=== PATIENT | female | born 1950 | race Caucasian/White ===

== ENCOUNTER 2023-08-16 04:52 | Emergency (ER) | payer MEDICARE, BC ==
[~2023-08-16] VITALS: Ht 170.2 cm; Wt 122.7 kg
[2023-08-16] MEDS ORDERED: METF-838 PO (06:32)
[2023-08-16] MEDS: ACETAMINOPHEN 325 MG TAB PO ONE (06:52)
[2023-08-16] MEDS ORDERED: METO100T5 PO (07:04)
[2023-08-16] MEDS ORDERED: SEMA14TA2 PO (07:05)
[2023-08-16] MEDS ORDERED: LEXA1TAB2 PO (07:08)
[2023-08-16] MEDS ORDERED: LANTINJ4 SC (07:08)
[2023-08-16] MEDS ORDERED: DILT1TAB3 PO (07:10)
[2023-08-16] MEDS ORDERED: ECOT81TA5 PO (07:11)
[2023-08-16] MEDS ORDERED: HYDR-4571 PO (07:49)
[2023-08-16 08:16] VITALS: BP 143/62; TEMP 97.3; O2SAT 94
== END 2023-08-16 08:18 | disposition home or self-care (01) ==
LOC: M ED 04:52
DX: S22.32XA Fracture of one rib, left side, initial encounter for closed fracture (principal); Y92.019 Unspecified place in single-family (private) house as the place of occurrence of the external cause; Y93.9 Activity, unspecified; Y99.9 Unspecified external cause status; I48.91 Unspecified atrial fibrillation; E11.9 Type 2 diabetes mellitus without complications; Z88.0 Allergy status to penicillin; Z88.8 Allergy status to other drugs, medicaments and biological substances; Z79.1 Long term (current) use of non-steroidal anti-inflammatories (NSAID); Z79.4 Long term (current) use of insulin; Z79.84 Long term (current) use of oral hypoglycemic drugs; Z79.899 Other long term (current) drug therapy